=== PATIENT | male | born 1980 | race Caucasian/White ===

== ENCOUNTER 2018-02-15 11:56 | Emergency (ER) | payer MEDICAID ==
[2018-02-15 12:23] VITALS: BP 168/98
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
[2018-02-15] MEDS ORDERED: Cyclobenzaprine TAB* 10 MG PO ONE (12:40)
--- NOTE | 2018-02-15 13:15 | RAD ---
INDICATION: Neck pain COMPARISON: None TECHNIQUE: Routine five-view imaging was performed FINDINGS: Bones: There are no acute bony findings. There are osteoarthritic changes consisting of endplate sclerosis and marginal osteophyte formation at C5-C6 and C6-C7. There is mild disc space narrowing at both levels Craniocervical junction: The odontoid and atlantodental interval are normal. Alignment: There is prominent reversal normal cervical lordosis. Disc spaces: The disc spaces are well-maintained Soft tissues: The prevertebral soft tissues are normal. IMPRESSION: MIDCERVICAL OSTEOARTHRITIC CHANGE WITH FLEXION DEFORMITY
== END 2018-02-15 13:11 | disposition home or self-care (01) ==
LOC: UCCORT 11:56
DX: F17.220 Nicotine dependence, chewing tobacco, uncomplicated (principal); S16.1XXA Strain of muscle, fascia and tendon at neck level, initial encounter; X58.XXXA Exposure to other specified factors, initial encounter; Y93.9 Activity, unspecified; Y92.9 Unspecified place or not applicable; M62.838 Other muscle spasm
CPT/HCPCS: 72050; 99212; A9270-GY; G0463